=== PATIENT | female | born 1975 | race Caucasian/White ===

== ENCOUNTER 2018-12-28 20:21 | Inpatient (IN) | payer OTHER ==
[~2018-12-28] VITALS: Ht 157.5 cm; Wt 91.6 kg
[~2018-12-28 20:21] MED LIST: HYDROCHLOROTHYAZIDE PO; K10; LEVOTHYROXINE PO; METOPROLOL50 MG PO
[2018-12-28 20:25] VITALS: Ht 157.5 cm; Wt 91.6 kg
--- NOTE | 2018-12-28 20:28 | NUR ---
PT SENT TO LOBBY TO WAIT FOR AVAILABLE BED. NO DISTRESS NOTED AT THIS TIME. PT ALERT AND ORIENTED
[2018-12-28 22:15] LABS: BASOPHIL % 1.3 % (0-2); PLATELET COUNT 214 x10^3mcL (130-400); RED CELL DISTRIBUTION WIDTH 12.9 % (11.5-14.5)
[2018-12-28 22:25] LABS: CALCIUM 8.5 mg/dL (8.5-10.1); CARBON DIOXIDE 21.8 mmol/L (21-32); CHLORIDE SERUM 102 mmol/L (98-107); CREATININE SERUM 0.9 mg/dL (0.6-1.0); GFR1 > 60 mL/min; GLUCOSE SERUM 151 mg/dL (74-106); POTASSIUM SERUM 3.5 mmol/L (3.5-5.1); SODIUM SERUM 135 mmol/L (136-145)
--- NOTE | 2018-12-28 22:27 | NUR ---
PT CAME TO ED CO SOB SINCE FRIDAY. PT DISCRIBES THE PAIN PRESSURE THAT RADIATES TO LEFT SHOULDER. PT STS THIS CAME ON SUDDENLY. PT SAT AT 99% ON ROOM AIR. PT TALKING IN COMPLETE SENTENCES. PT LUNG SOUNDS CLEAR BILATERALLY. COMFORT MEASURES IMPLEMENTED. CALL LIGHT W/IN REACH. NO S/S OF DISTRESS. RESP E/U. WILL CONTINUE TO MONITOR.
[2018-12-28 22:30] LABS: ALKALINE PHOSPHATASE 59 U/L (46-116); ALT/SGPT 105 U/L (14-59); AST/SGOT 42 U/L (15-37); BILIRUBIN TOTAL 0.99 mg/dL (0.20-1.00); LIPASE 60 IU/L (73-393)
[2018-12-28 22:39] LABS: ALBUMIN 3.3 g/dL (3.4-5.0); TOTAL PROTEIN, SERUM 8.3 g/dL (6.4-8.2)
--- NOTE | 2018-12-28 23:36 | NUR ---
PT MEDICATED PER ORDER. PT VERBALIZED UNDERSTANDING OF MEDICATION TEACHING. SEE EMAR FOR DETAILS.
[2018-12-29] MEDS ORDERED: LOP100 PO (00:23)
[2018-12-29] MEDS ORDERED: TIROSINT75 MC1 PO (00:23)
--- NOTE | 2018-12-29 00:37 | NUR ---
REPORT GIVEN TO ENRIQUE CRUM TO ASSUME CARE OF PT.
--- NOTE | 2018-12-29 01:04 | NUR ---
PT TRANSFERRED TO TELE FLOOR ACCOMPANIED BY NURSE AND EMT. NO S/S OF DISTRESS. RESP E/U. RN AT BEDSIDE TO ASSUME CARE. PT AMBULATED W/STEADY GAIT FROM [facility]. IV SITE PATENT, NO S/S OF INFILTRATION. ACCOMPANIED PT.
[2018-12-29 01:16] VITALS: BP 113/75
--- NOTE | 2018-12-29 01:24 | NUR ---
RECEIVED PT FROM ER, PT ADMIT FOR NONSTEMI, PT IS A/O X4, VERBAL RESPONSIVE, ABLE TO TELL WHAT SHE NEEDS. LUNG SOUND CLEAR BILATERAL, NO COUGH, NO SOB, PT IS ON TELE 4, A.FIB, AND PVC, DENY ANY CHEST PAIN AT THIS MOMENT PT HAD INTERNAL DEFIBILLATOR, BOWEL SOUND PRESENT ALL 4 QUADRANTS, NO DISTENTION, NO TENDER. PEDAL PULSE PRESENT BOTH FEET, NO EDEMA, IV AT RIGHT AC, NO LEAKING, NO INFILTRATION. ALL ADLS ASSIST, ALL NEED MET, CALL LIGHT IN REACH, WILL CONTINUE TO MONITOR.
--- NOTE | 2018-12-29 01:33 | NUR ---
REPORT RECEIVED FROM ENRIQUE KANG. PATIENT WAS SEEN RESTING COMFORTABLY IN BED. NO DISTRESS NOTED. BREATHING EVEN AND UNLABORED ON ROOM AIR. NO SOB OR RESP DISTRESS NOTED. DENIES CHEST PAIN/PRESSURE/TIGHTNESS AT THIS TIME. TELE #4. IV TO THE RAC, 20G, SALINE LOCK. PATENT AND INTACT. NO REDNESS OR SWELLING NOTED. DRESSING CDI. C/O DIARRHEA. REPORTS HAVING 6 EPISODES OF DIARRHEA TODAY. DENIES N/V AT THIS TIME, BUT REPORTS SHE THROWS UP 2 TIMES A DAY. EMESIS AND DIARRHEA DO NOT HAVE BLOOD. NO C/O PAIN AT THIS TIME. COMFORT AND SAFETY MEASURES IN PLACE. BED IS LOCKED AND IN THE LOWEST POSITION. SIDE RAILS UP X2. CALL LIGHT IS WITHIN REACH. WILL CONTINUE TO MONITOR
--- NOTE | 2018-12-29 01:33 | NUR ---
REPORT RECEIVED FROM ENRIQUE KANG. PATIENT WAS SEEN RESTING COMFORTABLY IN BED. NO DISTRESS NOTED. BREATHING EVEN AND UNLABORED ON ROOM AIR. NO SOB OR RESP DISTRESS NOTED. DENIES CHEST PAIN/PRESSURE/TIGHTNESS AT THIS TIME. TELE #4. IV TO THE RAC, 20G, SALINE LOCK. PATENT AND INTACT. NO REDNESS OR SWELLING NOTED. DRESSING CDI. C/O DIARRHEA. REPORTS HAVING 6 EPISODES OF DIARRHEA YESTERDAY. DENIES N/V AT THIS TIME, BUT REPORTS SHE THROWS UP 2 TIMES A DAY. EMESIS AND DIARRHEA DO NOT HAVE BLOOD. NO C/O PAIN AT THIS TIME. COMFORT AND SAFETY MEASURES IN PLACE. BED IS LOCKED AND IN THE LOWEST POSITION. SIDE RAILS UP X2. CALL LIGHT IS WITHIN REACH. WILL CONTINUE TO MONITOR
--- NOTE | 2018-12-29 01:50 | NUR ---
INFORMED PATIENT THAT A URINE SAMPLE IS NEEDED. HAT PLACED ON TOILET. EDUCATED PATIENT TO CALL WHEN SHE VOIDS SO URINE CAN BE COLLECTED. PATIENT VERBALIZED UNDERSTANDING. ICE WATER GIVEN WELL.
--- NOTE | 2018-12-29 03:08 | NUR ---
RESTING IN BED WITH EYES CLOSED ON RIGHT SIDE. NO DISTRESS NOTED. NO S/S OF PAIN NOTED. IV IS SALINE LOCK TO RAC. BREATHING EVEN AND UNLABORED ON ROOM AIR. SAFETY MEASURES IN PLACE. CALL LIGHT IS WITHIN REACH. WILL CONTINUE TO MONITOR.
--- NOTE | 2018-12-29 04:21 | NUR ---
C/O ACID REFLUX AND REQUESTING MEDICATION. PAGE GATED DR MILLER TO NOTIFY HIM. NO NEW ORDERS AT THIS TIME. PATIENT DENIES SOB OR CHEST PAIN/PRESSURE/TIGHTNESS. BREATHING EVEN AND UNLABORED ON ROOM AIR. SAFETY MEASURES IN PLACE. CALL LIGHT IS WITHIN REACH. WILL CONTINUE TO MONITOR
[2018-12-29 05:43] VITALS: BP 100/55
--- NOTE | 2018-12-29 06:23 | NUR ---
PATIENT RESTED IN SHORT INTERVALS SINCE ARRVING ONTO THE UNIT. NO ACUTE CHANGES NOTED. DENIES SOB AND CHEST PAIN. BREATHING EVEN AND UNLABORED ON ROOM AIR. NO C/O PAIN THROUGHOUT THE NIGHT. DENIES N/V. IV SALINE LOCK TO THE RAC. URINE COLLECTED FOR UA/UDS. EDUCATED PATIENT THAT STOOL SAMPLE IS NEEDED WELL AND DIET CHANGED TO FULL LIQUID. DEMONSTRATED UNDERSTANDING. ALL NEEDS AND CONCERNS ADDRESSED. COMFORT AND SAFETY MEASURES IN PLACE. CALL LIGHT IS WITHIN REACH. WILL ENDORSE CARE TO DAY SHIFT RN.
[2018-12-29 06:36] LABS: BASOPHIL % 0.6 % (0-2); PLATELET COUNT 190 x10^3mcL (130-400); RED CELL DISTRIBUTION WIDTH 12.9 % (11.5-14.5)
[2018-12-29 07:06] LABS: CALCIUM 8.3 mg/dL (8.5-10.1); CARBON DIOXIDE 23.1 mmol/L (21-32); CHLORIDE SERUM 101 mmol/L (98-107); CHOLESTEROL 172 mg/dL (<200); CREATININE SERUM 0.8 mg/dL (0.6-1.0); GFR1 > 60 mL/min; GLUCOSE SERUM 82 mg/dL (74-106); MAGNESIUM 1.7 mg/dL (1.8-2.4); POTASSIUM SERUM 3.4 mmol/L (3.5-5.1); SODIUM SERUM 137 mmol/L (136-145); TRIGLYCERIDES 110 mg/dL (<150)
[2018-12-29 07:08] LABS: CHOLESTEROL/HDL RATIO 5.9; HDL CHOLESTEROL 29 mg/dL (40-60)
[2018-12-29 07:22] LABS: UA SPECIFIC GRAVITY >=1.030 (1.005-1.035); microscopic required? YES; urine erythrocyte 3+ (NEGATIVE)
--- NOTE | 2018-12-29 07:30 | NUR ---
RECEIVED PT IN BED A/A/OX4 DENIES SAUCEDO. RESP EVEN AND UNLABORED WITH CLEAR BS BILAT. DENIES ANY SOB/CP/PRESSURE AT THIS TIME. REPORTED IMPROVEMENT WITH CP ONCE SHE ARRIVED ON FLOOR. CURRENTLY AFIB ON TELE WITH +TROP, PENDING CARDIOLOGY CONSULT. ABD SOFT, NONTENDER WITH ACTIVE BS X4. HAD EPISODES OF DIARRHEA PRIOR TO ARRIVAL, REMINDED TO PROVIDE SPECIMEN ON NEXT BM SINCE PT HAS ORDER FOR STOOL STUDY. VOIDING FREELY, DENIES ANY DISCOMFORT WITH URINATION. AMBULATORY. CALL LIGHT IN REACH NEEDS ATTENDED TO.
[2018-12-29 07:32] LABS: AMPHETAMINE QUAL UR NONE DETECTED (See below)
[2018-12-29 08:44] VITALS: BP 96/62
[2018-12-29 12:35] VITALS: BP 92/62
--- NOTE | 2018-12-29 13:37 | NUR ---
HERE AND MADE AWARE OF THE TROP 1.031. PAGE GATE TO THE RESULTS OF THE TROP 1.031.
--- NOTE | 2018-12-29 14:11 | NUR ---
Discount pharmacy card and list to low cost medical clinics given to patient by Gayathri Sanchez.
--- NOTE | 2018-12-29 16:10 | NUR ---
DR. DAVIS MADE AWARE OF LASIX DOSE HELD D/T LOW B/P 86/60. PER OK TO HOLD WILL ADD ANOTHER DOSE FOR TONIGHT TO BE GIVEN IF SBP>90. CONT TO MONITOR.
--- NOTE | 2018-12-29 18:20 | NUR ---
PT RESTING AT THIS TIME. DENIES ANY DISCOMFORT WITH ONGOING 1L BOLUS ORDERED. LATEST B/P PRIOR TO STARTING BOLUS . PT HAD NO EPISODES OF CP THROUGH OUT THE SHIFT. HAD CARDIOLOGY CONSULTS WITH CHANGES TO MEDICATIONS. NO EPISODES OF DIARRHEA, WITH PENDING STOOL STUDY. PT REMINDED TO PLS COLLECT SPECIMEN. CALL LIGHT IN REACH NEEDS ATTENDED TO.
[2018-12-29 18:21] VITALS: BP 93/66
--- NOTE | 2018-12-29 20:00 | NUR ---
PATIENT RECEIVED AWAKE, ALERT, ORIENTED X4 IN BED. RESPIRATION EVEN AND UNLABORED, ON ROOM AIR. ONGOING 0.9% NS AT 150 CC/HR INFUSING WELL AT THE RIGHT ANTECUBITAL AREA. DENIES PAIN AT THIS TIME. LBM 12/28/2018. VOIDING FREELY WITHOUT DIFFICULTY. AMBULATORY. SKIN DRY AND INTACT. ON TELE #4. WILL CONTINUE TO MONITOR.
[2018-12-29 20:25] VITALS: BP 121/67
[2018-12-30 05:33] VITALS: BP 103/69
--- NOTE | 2018-12-30 06:15 | NUR ---
PATIENT RESTING IN BED. RESPIRATION EVEN AND UNLABORED, ON ROOM AIR. DENIES PAIN NOR DISCOMFORT. IV SITE NO SIGN OF INFILTRATION. ASSISTED WITH NEEDS. SAFETY OBSERVED. PLACED BED IN THE LOWEST POSITION. PLACED CALL LIGHT WITHIN REACH AT ALL TIMES.
[2018-12-30 06:56] LABS: BASOPHIL % 0.6 % (0-2); PLATELET COUNT 184 x10^3mcL (130-400)
[2018-12-30 07:14] LABS: CALCIUM 8.5 mg/dL (8.5-10.1); CARBON DIOXIDE 25.8 mmol/L (21-32); CHLORIDE SERUM 106 mmol/L (98-107); CREATININE SERUM 0.8 mg/dL (0.6-1.0); GFR1 > 60 mL/min; GLUCOSE SERUM 89 mg/dL (74-106); MAGNESIUM 1.9 mg/dL (1.8-2.4); PHOSPHOROUS 3.5 mg/dL (2.5-4.9); POTASSIUM SERUM 3.7 mmol/L (3.5-5.1); SODIUM SERUM 142 mmol/L (136-145)
--- NOTE | 2018-12-30 07:30 | NUR ---
RECEIVED PT IN NO ACUTE DISTRESS. ASLEEP BUT AROUSABLE. RESP EVEN AND UNLABORED ON RA. NO PAIN NOTED. A-FIB ON TELE #4, HR IN 110'S. IV TO RAC, NO REDNESS OR SWELLING TO IV SITE. BED IN LOW POSITION, CALL LIGHT WITHIN REACH. WILL CONTINUE TO MONITOR.
[2018-12-30 08:07] VITALS: BP 106/61
--- NOTE | 2018-12-30 09:08 | NUR ---
PT HAD SOFT BM, STOOL CX SAMPLE SENT TO LAB ORDERED. NO C/O ABD DISCOMFORT, TOLERATED FULL LIQUID DIET THIS AM. WILL CONTINUE TO MONITOR.
--- NOTE | 2018-12-30 11:48 | NUR ---
PT SITTING UP ON A CHAIR. NO ACUTE DISTRESS. RESP EVEN AND UNLABORED ON RA. REPORTS SOB WHEN AMBULATING. DENIES CP OR PRESSURE. IV TO RAC, NO REDNESS OR SWELLING. VISITORS AT BEDSIDE. CALL LIGHT WITHIN REACH. WILL CONTINUE TO MONITOR.
[2018-12-30 12:11] VITALS: BP 102/71
[2018-12-30 16:19] VITALS: BP 115/82
--- NOTE | 2018-12-30 17:00 | NUR ---
PT SITTING UP IN BED. NO ACUTE DISTRESS. DENIES CP OR PRESSURE. GIVEN NEW GOWN, BATH WIPES AND UNDERWEAR REQUESTED. IV TO RAC WITH NO REDNESS OR SWELLING. CALL LIGHT WITHIN REACH. WILL CONTINUE TO MONITOR.
--- NOTE | 2018-12-30 17:56 | NUR ---
PT POSITIVE FOR MRSA NARES. PLACED ON CONTACT ISOLATION. DR. DAVIS NOTIFIED. WILL CONTINUE TO MONITOR.
--- NOTE | 2018-12-30 18:12 | NUR ---
PT IN NO ACUTE DISTRESS. SITTING UP ON THE SIDE OF THE BED. AAOX4. DENIES CP OR PRESSURE. IV TO RAC, NO REDNESS OR SWELLING. BED IN LOW POSITION, CALL LIGHT WITHIN REACH. WILL ENDORSE TO ONCOMING SHIFT.
--- NOTE | 2018-12-30 19:30 | NUR ---
RECEIVED PT FROM DAY SHIFT RN. PT AAOX4 DENIES SAUCEDO/DIZZINESS. BREATHING EVEN AND UNLABORED ON RA WITH NO SOB NOTED. MED SURG PT DENIES CHEST PAIN OR PRESSURE. PT HAS DEFIBRILLATOR. PT AMBULATORY WITH BRP. ABD DISTENDED, ACTIVE BOWEL SOUNDS. DENIES ABD PAIN/N/V. IV RAC PATENT, SL. CONTACT ISOLATION. PT DENIES ANY PAIN. CALL BUTTON WITHIN REACH. SAFETY PRECAUTIONS IN PLACE. FAMILY AT BEDSIDE. WILL CONTINUE TO MONITOR.
--- NOTE | 2018-12-30 20:30 | NUR ---
DR MILLER MADE AWARE MRSA POSITIVE RESULTS. NO NEW ORDERS AT THIS TIME.
[2018-12-30 20:49] VITALS: BP 105/75
--- NOTE | 2018-12-31 01:01 | NUR ---
PT RESTING. BREATIHNG EVEN AND UNLABORED WITH NO SOB NOTED. SAFETY PRECAUTIONS IN PLACE. WILL CONTINUE TO MONITOR.
--- NOTE | 2018-12-31 03:33 | NUR ---
ROUNDS MADE. PT RESTING. BREATHING EVEN AND UNLABORED WITH NO SIGNS OF DISTRESS. SAFETY PRECAUTIONS IN PLACE. WILL CONTINUE TO MONITOR.
--- NOTE | 2018-12-31 05:02 | NUR ---
PT SLEPT MOST OF THE NIGHT WITH NO SIGNS OF DISTRESS. BREATHING EVEN AND UNLABORED ON RA WITH NO SOB NOTED. PT AMBULATES WITH BRP. IV PATENT, SL. PT DENIES ANY PAIN. MEDICATED PER EMAR. PT IN NO SIGNS OF ACUTE DISTRESS NOTED. CALL BUTTON WITHIN REACH. CONTACT PRECAUTIONS IN PLACE. WILL CONTINUE TO MONITOR AND ENDORSE CARE TO DAY SHIFT RN.
[2018-12-31 05:58] VITALS: BP 105/75
[2018-12-31 06:45] LABS: BASOPHIL % 0.6 % (0-2); PLATELET COUNT 174 x10^3mcL (130-400); RED CELL DISTRIBUTION WIDTH 13.2 % (11.5-14.5)
[2018-12-31 07:04] LABS: CALCIUM 8.5 mg/dL (8.5-10.1); CARBON DIOXIDE 22.5 mmol/L (21-32); CHLORIDE SERUM 108 mmol/L (98-107); CREATININE SERUM 0.6 mg/dL (0.6-1.0); GFR1 > 60 mL/min; GLUCOSE SERUM 100 mg/dL (74-106); PHOSPHOROUS 3.9 mg/dL (2.5-4.9); POTASSIUM SERUM 3.7 mmol/L (3.5-5.1); SODIUM SERUM 141 mmol/L (136-145)
--- NOTE | 2018-12-31 07:16 | NUR ---
PT RESTING IN NO SIGNS OF DISTRESS. ENDORSED CARE TO DAY SHIFT RN, ALL QUESTIONS ADDRESSED.
--- NOTE | 2018-12-31 07:19 | NUR ---
RECEIVED PT IN NO ACUTE DISTRESS. RESTING IN BED. AAOX4. RESP EVEN AND UNLABORED ON RA. NO C/O CP OR PRESSURE. IV TO RAC, NO REDNESS OR SWELLING NOTED. BED IN LOW POSITION, CALL LIGHT WITHIN REACH. WILL CONTINUE TO MONITOR.
[2018-12-31 09:03] VITALS: BP 129/83
[2018-12-31] MEDS ORDERED: ELIQUIS5 MG PO (10:35)
[2018-12-31 11:37] VITALS: BP 129/83
--- NOTE | 2018-12-31 12:02 | NUR ---
PT DISCHARGED TO HOME IN NO ACUTE DISTRESS. AWAKE, ALERT, AND ORIENTED. VSS. AMBULATORY. RX GIVEN. DISCHARGE EDUCATION PROVIDED, PT VERBALIZED UNDERSTANDING. INSTRUCTED PT TO FOLLOW UP WITH PCP AND CHIP TESTER. BELONGINGS WITH PT. IV DC'D WITH CATHETER INTACT. FRANNY CLARKE ACCOMPANIED PT TO LOBBY.
== END 2018-12-31 12:02 | disposition home or self-care (01) | DRG 194 ==
LOC: ED 20:21 → DU 23:41 → MU 12-30 16:23
PROVIDERS: Emergency Medicine; Internal Medicine; ADMIT Internal Medicine
DX: I50.23 Acute on chronic systolic (congestive) heart failure (principal); I21.A1 Myocardial infarction type 2; E44.0 Moderate protein-calorie malnutrition; I48.2 Chronic atrial fibrillation; E06.3 Autoimmune thyroiditis; I42.2 Other hypertrophic cardiomyopathy; K52.9 Noninfective gastroenteritis and colitis, unspecified; Z68.35 Body mass index [BMI] 35.0-35.9, adult; Z87.891 Personal history of nicotine dependence; Z95.810 Presence of automatic (implantable) cardiac defibrillator
CPT/HCPCS: 83880; 87046; 87046-59; G0378; J1650; J1885; J1940; J2405; J3475; J7030; J7050; Q0092

== ENCOUNTER 2019-01-15 18:08 | Inpatient (IN) | payer OTHER ==
[~2019-01-15] VITALS: Ht 157.5 cm; Wt 91.0 kg
[~2019-01-15 18:08] MED LIST changes: +ELIQUIS5 MG PO; +LOP100 PO; +TIROSINT75 MC1 PO
--- NOTE | 2019-01-15 18:35 | NUR ---
AMBULATORY TO BED 14. PT C/O WHEEZING X1 DAY, PRIOD COUGH X2 DAYS. PT ALSO C/O ABD PAIN AND SOB. DENIES CP, "I JUST FEEL FATIGUED".
--- NOTE | 2019-01-15 18:37 | NUR ---
DR. BROOKS AT BEDSIDE.
[2019-01-15 19:01] LABS: BASOPHIL % 1.3 % (0-2); PLATELET COUNT 203 x10^3mcL (130-400); RED CELL DISTRIBUTION WIDTH 13.6 % (11.5-14.5)
--- NOTE | 2019-01-15 19:04 | NUR ---
ALL MEDS WERE ADMINISTERED ORDERED. PT STATES "I FEEL BETTER, MY CHEST FEELS BETTER". A FIB ON MONITOR AT 97-105 AT THIS TIME, DENIES CP. SITTING IN BED, O2 2L VIA NC.
--- NOTE | 2019-01-15 19:05 | NUR ---
REPORT GIVEN TO ENRIQUE MCCARTHY NOC SHIFT.
--- NOTE | 2019-01-15 19:10 | NUR ---
RECIEVED REPORT FROM CHRISTIANO RN. PT SITTING ON GURNEY WITH LEGS CROSSED ON GURNEY IN POSITION OF COMFORT. PT A&0X4, SPEAKING FULL CLEAR SENTENCES. BREATHING EVEN AND UNLABORED. PT DENIES ANY SOB AT THIS TIME. CM AND [address] PT REMAINS AFIB ON MONITOR. DR BROOKS AWARE. WILL CONTINUE TO MONITOR.
[2019-01-15 19:18] LABS: CALCIUM 7.9 mg/dL (8.5-10.1); CHLORIDE SERUM 107 mmol/L (98-107); CREATININE SERUM 0.8 mg/dL (0.6-1.0); GFR1 > 60 mL/min; GLUCOSE SERUM 111 mg/dL (74-106); POTASSIUM SERUM 3.9 mmol/L (3.5-5.1); SODIUM SERUM 142 mmol/L (136-145)
[2019-01-15 19:22] LABS: ALKALINE PHOSPHATASE 52 U/L (46-116); ALT/SGPT 63 U/L (14-59); AST/SGOT 36 U/L (15-37); BILIRUBIN TOTAL 0.8 mg/dL (0.20-1.00); TOTAL PROTEIN, SERUM 8.1 g/dL (6.4-8.2)
--- NOTE | 2019-01-15 19:48 | NUR ---
PT MEDICATED PER MD ORDERS. PT C/O PAIN IN STOMACH WHEN COUGHING. DR BROOKS AWARE. AWAITING ORDERS AT THIS TIME.
[2019-01-15] MEDS ORDERED: GOOD SENSE ASP325 MG PO (20:14)
--- NOTE | 2019-01-15 20:55 | NUR ---
REPORT CALLED TO ALEX NUNEZ
--- NOTE | 2019-01-15 20:58 | NUR ---
PT AMBULATED TO RESTROOM WITH STEADY GAIT. PT DENIES ANY SOB. PT A&0X4, SPEAKING FULL CLEAR SENTENCES. BREATHING EVEN AND UNLABORED. WILL CONTINUE TO MONITOR.
--- NOTE | 2019-01-15 21:00 | NUR ---
PT RECIEVED FROM PEARL NUNEZ. DENIES PAIN AND DISCOMFORT AT THIS TIME. BREATHING E/U ON RA. NO S/S OF ACUTE DISTRESS NOTED AT THIS TIME. ORIENTED TO UNIT AND DEVICES. BED AT LOWEST POSITION. CALL LIGHT WITHIN REACH. WILL CONTINUE TO MONITOR.
--- NOTE | 2019-01-15 21:05 | NUR ---
PT TRANSFERED TO TELE AT THIS TIME VIA LINDA ACCOMPANIED BY [place] RN AND KATHY EMT. PT A&0X4, SPEAKING FULL CLEAR SENTENCES. PT BREATHING EVEN AND UNLABORED. PT CONTINUES TO SHOW AFIB ON MONITOR. FAMILY AT BEDSIDE. PT AND FAMILY VERBALIZED UNDERSTANDING OF PLAN OF CARE.
[2019-01-15 21:24] VITALS: BP 101/71
--- NOTE | 2019-01-15 21:34 | NUR ---
RECEIVED PT FROM ER, PT ADMIT FOR A.FIB, HF, PT IS A/O X4, VERBAL RESPONSIVE, LUNG SOUND CLEAR BILATERAL, NO COUGH, NO SOB, PT IS ON TELE 2, A.FIB, C/O CHEST PAIN 2/10 AT THIS MOMENT, BOWEL SOUND PRESENT ALL 4 QUADRANTS, NO DISTENTION, NO TENDER. PEDAL PULSE PRESENT BOTH FEET, NO EDEMA, IV AT LEFT AC, NO LEAKING, NO INFILTRAITON. ALL ADLS ASSIST, ALL NEED MET, CALL LIGHT IN REACH, WILL CONTINUE TO MONITOR.
[2019-01-16] VITALS (7 sets, daily range): BP systolic 92–113; BP diastolic 61–77
[2019-01-16 00:42] LABS: AMPHETAMINE QUAL UR NONE DETECTED (See below)
--- NOTE | 2019-01-16 00:48 | NUR ---
PT RESTING IN BED AT THIS TIME. DENIES PAIN OR DISCOMFORT AT THIS. NO SIGNS OF ACUTE DISTRESS NOTED AT THIS TIME. BED AT LOWEST POSITION. CALL LIGHT WITHIN REACH. WILL CONTINUE TO MONITOR.
--- NOTE | 2019-01-16 06:05 | NUR ---
PT RESTING IN BED COMFORTABLY AT THIS TIME. DENIES PAIN OR DISCOMFORT AT THIS TIME. BREATHING EVEN AND UNLABORED ON RA. SPO2 95%. NO ACUTE DISTRESS THIS SHIFT. PT RECIEVED BREATHING TREATMENT VIA RT. WILL ENDORSE TO DAY NURSE.
[2019-01-16 07:08] LABS: CALCIUM 7.9 mg/dL (8.5-10.1); CHLORIDE SERUM 105 mmol/L (98-107); CREATININE SERUM 0.8 mg/dL (0.6-1.0); GFR1 > 60 mL/min; GLUCOSE SERUM 148 mg/dL (74-106); MAGNESIUM 1.7 mg/dL (1.8-2.4); POTASSIUM SERUM 3.7 mmol/L (3.5-5.1); SODIUM SERUM 139 mmol/L (136-145)
--- NOTE | 2019-01-16 07:32 | NUR ---
AAO TIMES 4. TELE # 2 A FIB 93 TO 113. LUNGS CTA. NO SOB. O2 SAT ON RA 100%. BS'S ACTIVE TIMES 4. MAHAJAN STRONG. PATIENT HAS AN INTERNAL DEFIBRILLATOR TO LEFT UPPER CHEST, SCAR IS CDI, DEVICE PALPATED UNDER THE SKIN PERIPHERAL PULSES PALPABLE. NO EDEMA.
--- NOTE | 2019-01-16 09:26 | NUR ---
ECHO PENDING. PATIENT HAD ECHO [place] HERE [place] [facility] [place] SEE MEDICAL RECORDS FOR REPORT.
--- NOTE | 2019-01-16 10:07 | NUR ---
HER HEART RATE WAS 150'S AND ATRIAL FIB. CARDIZEM 10 MG IVP WAS GIVEN OVER 2 MINUTES AT 0850. AT 0855 HER HEART RATE WAS FLUCTUATING APPROXIMATLEY BETWEEN 115 TO 130.
--- NOTE | 2019-01-16 11:30 | NUR ---
DR BARNETT, COVERING FOR DR BOTELLO THIS WEEKEND, IS AWARE OF HER TROPONIN OF 0.370 AND ITS TRENDING DOWN FROM PREVIOUS TROPONIN OF 0.469. HE IS AWARE OF HER MAG OF 1.7, SHE WILL GET PO MAG.
--- NOTE | 2019-01-16 12:46 | NUR ---
CORRECTIONS NURSE CALLED PATIENT HAD HR OF 151 AFIB. WENT TO CHECK THE PATIENT AND STATED SHE FEELS HER HR BEATING FAST AND SHE CLAIMED THAT SHE WAS COUGHING NO C/O OF CHEST PAIN OR NO SIGNS OF SOB. B/P-113/77,AK-115,RR-16 AND SAT.AT 94%. HERE AND MADE AWARE AND W/ ORDER AND SHOWS THE [facility].
[2019-01-16 15:00] LABS: T3 TOTAL 0.85 ng/mL
--- NOTE | 2019-01-16 18:15 | NUR ---
AAO TIMES 4. TELE # 2 A FIB 139. DENIES DISCOMFORT. NO SOB. COOPERATIVE. VS'S EXCEPT FOR HR STABLE. IV SITE LAC PATENT, CDI. WATCHING TV AND LOOKING AT HER PHONE.
--- NOTE | 2019-01-16 18:46 | NUR ---
HER HEART RATE IS GOING FROM THE 140'S TO THE 150'S AND ATRIAL FIB. HER CURRENT BP AT THIS TIME IS 92/63, HR 145. I HAVE DILTIAZEM IVP TO GIVE HER, BUT HER BP IS TOO LOW. I DISCUSSED WITH MY CHARGE NURSE ELOY, AND WE DECIDED TO HOLD IT DUE TO HER BP. SHE IS ASYMPTOMATIC.
--- NOTE | 2019-01-16 18:51 | NUR ---
I HAD HER DO THE VALSALVA MANEUVER BLOWING INTO HER THUMB, 3 TIMES, HER HR WAS IN THE 150'S AND IT WENT DOWN TO THE 140'S, THEN WENT BACK UP TO THE 150'S.
--- NOTE | 2019-01-16 19:10 | NUR ---
MONITOR SHOWS SVT HR-150'S AND WENT TO PATIENT ROOM WAS SITTING IN THE CHAIR AND C/O OF CHEST PRESSURE. SHE WENT BACK TO BED AND AM GETTING THE O2 NASAL CANNULA AND GIVE TO [place]INA RN AND MADE AWARE. CALLED TO 'S CELL NO. AND LEAVE A MESSAGE.CALLED TO HIS EXCHANGE AND WAITING NO ANSWER. CALLED TO CHIEF PETROLEUM ENGINEER OF THE GROUP AND GEORGE MARINELLI IS CHIEF PETROLEUM ENGINEER. 1919- CALLED BACK AND INFORMED AND UPDATED THE CONDITION OF THE PATIENT AND SHE WANTS TO LET KNOWS AND SHE ORDERED TO BOLUS 200CC NORMAL SALINE.
--- NOTE | 2019-01-16 19:30 | NUR ---
PT IS A/O X4. ON TELE #2, AFIB HR IN 150-160S. COMPLAINS OF MILD CHEST PAIN 3/10. NON RADIATING, DULL. NO SIGN OF DISTRESS NOTED. CHARGE NURSES ATTEMPTING TO CALL MD FOR ORDERS TO DECREASE THE HR. PULSES ARE PRESENT. NO EDEMA NOTED. LUNGS CLEAR. ON 2L NC, DENIES ANY SOB. EQUAL CHEST RISE AND FALL. DENIES ANY SOB. BOWEL SOUNDS PRESENT. SKIN INTACT. DENIES ANY OTHER PAIN OR DISTRESS. SALINE LOCKED ON LAC. AND FAMILY AT BEDSIDE. BED AT LOWEST SETTING. THERAPUTIC COMMUNICATION PROVIDED. WILL CONTINUE TO MONITOR.
--- NOTE | 2019-01-16 19:45 | NUR ---
BOULS WAS INITIATED.
--- NOTE | 2019-01-16 20:00 | NUR ---
CALLED BACK AND INFORMED OF THE PATIENT'S HEART RATE IN THE 150'S AND SHE RECEIVED THE DIGOXIN THAT WAS ORDERED EARLIER.TOLD THAT DR VAZQUEZ FILM AND VIDEO GRAPHICS DESIGNER FROM THE GROUP ORDERED NS 200CC BOLUS. MADE MAGANA THAT PATIENT'S B/P IN THE 90'S AND HE GAVE ORDERS. REPORT GIVEN TO FERNANDA NUNEZ IN CHARGE OF THE PATIENT.
--- NOTE | 2019-01-16 21:06 | NUR ---
DIG WAS PUSHED PER EMAR. APICAKL PULSE WAS 147 BEFORE PUSHING MEDICATIONS. BEFORE AND AFTER STRIPS PRINTED. CALCIUM CHOLRIDE IS BEING GIVEN. AT THIS TIME.
--- NOTE | 2019-01-16 22:17 | NUR ---
CALCIUM CHOLRIDE IS COMPLETED. IV SITE IS INTACT. PT DENIES ANY PAIN OR DISCOMFORT AT SIGHT. DENIES ANY CHEST PAIN AT THIS TIME. MAG RIDER WAS HUNG AND BEGUN PER EMAR. B/P IS 98/74 HR IN 140S TO HIGH 150S, UNABLE TO GIVE VERAPAMIL PER EMAR D/T LOW B/P AT THIS TIME. WILL RECHECK B/P.
--- NOTE | 2019-01-16 23:04 | NUR ---
PT B/P IS 105/68 WITH HR 140. GAVE ORDERED VERAPAMIL. WILL CONTINUE TO MONTIOR.
--- NOTE | 2019-01-17 03:42 | NUR ---
GAVE DIG PER EMAR. APICAL PULSE WAS CHECKED BEFORE ADMINISTERING MEDICATION. HR WAS 94. TELE STRIP WAS PRINTED BEFORE AND AFTER. WILL CONTINUE TO MONITOR.
[2019-01-17 05:37] VITALS: BP 107/66
--- NOTE | 2019-01-17 06:49 | NUR ---
PT IS RESTING IN BED. DENIES ANY CHEST PAIN OR PRESSURE. DIG WAS GIVEN PER EMAR. APICAL RATE WAS 88 AND STRIP WAS PRINTED BEFORE AND AFTER. IV IS INTACT AND PATENT. SITE WNL. BED IS AT LOWEST SETTING. CALL LIGHT WITHIN REACH. WILL ENDORSE TO AM NURSE.
[2019-01-17 07:33] LABS: CALCIUM 8.2 mg/dL (8.5-10.1); CARBON DIOXIDE 26.8 mmol/L (21-32); CHLORIDE SERUM 106 mmol/L (98-107); CREATININE SERUM 0.8 mg/dL (0.6-1.0); GFR1 > 60 mL/min; GLUCOSE SERUM 89 mg/dL (74-106); MAGNESIUM 1.9 mg/dL (1.8-2.4); POTASSIUM SERUM 3.6 mmol/L (3.5-5.1); SODIUM SERUM 141 mmol/L (136-145)
--- NOTE | 2019-01-17 08:01 | NUR ---
AAO TIMES 4. TELE # 2 A FIB. 70'S. LUNGS CTA. NO SOB. O2 SAT ON 2L NC 98%. BS'S ACTIVE TIMES 4. DENIES DISCOMFORT OR SOB. PERIPHERAL PULSES PALPABLE. NO EDEMA. BRP SELF, ABLE TO REPOSITION SELF EASILY ALSO. IV SITE LAC PATENT, CDI. COOPERATIVE. SHE WAS TAUGHT TO USE HAT ON TOILET TO KEEP TRACK OF I&O'S AND TO KEEP TRACK OF WHAT SHE DRINKS, SHE AGREED. NO C/O DISCOMFORT. DR HERRERA CAME IN THIS AM TO CHECK ON HER, HER HR IS STAYING IN THE 70'S AT THIS TIME.
[2019-01-17 08:04] VITALS: BP 98/67
--- NOTE | 2019-01-17 09:35 | NUR ---
SHE WAS COUGHING AND WHEEZING. SHE WAS GIVEN PHENERGAN WITH CODEINE PER DR BARNETT'S ORDER AT 0935. AT 1035 SHE WAS NO LONGER COUGHING.
--- NOTE | 2019-01-17 09:35 | NUR ---
SHE WAS C/O ANXIETY. DR BARNETT WAS AWARE, HE ORDERED ATIVAN 1 MG PO. IT WAS GIVEN AT 0935. AT 1035 SHE WAS SLEEPING, SHE LATER SAID SHE FELT BETTER.
--- NOTE | 2019-01-17 11:23 | NUR ---
SHE HAD A RUN OF V TACH, DR BARNETT PRESENT AND WAS SHOWN THE STRIP OF V TACH. I TOLD HIM ABOUT HER HEART RATE TODAY AND LAST NIGHT, AND ALSO ABOUT HER WHEEZING AND COUGHING. HE ORDERED PREDNISONE AND COUGH SYRUP.
--- NOTE | 2019-01-17 11:36 | NUR ---
DR BARNETT AWARE THAT I HELD THE COREG AT 0900 DOSE SO THAT THE CORDERONE COULD BE GIVEN THIS AM WHEN HER BP WAS 98/67, I WAS WORRIED HER BP WOULD DROP. ANABEL BP IS NOW 114/63, HR 93, MAP OF 83. HE SAID TO GIVE THE COREG 6.25 MG PO NOW.
--- NOTE | 2019-01-17 11:40 | NUR ---
SHE WAS COUGHING AT 1140, SHE WAS COUGHING OFF AND ON ALL MORNING. AT 1140 SHE WAS GIVEN PHENERGAN WITH CODEINE PER DR BARNETT'S ORDER. AT 1240 SHE SAID HER COUGHING WAS RELIEVED.
[2019-01-17 11:54] VITALS: BP 114/63
[2019-01-17 16:49] VITALS: BP 100/62
--- NOTE | 2019-01-17 18:36 | NUR ---
AAO TIMES 4. TELE # 2 A FIB 130'S. DENIES DISCOMFORT. NO SOB. O2 2L NC. HER IS PRESENT, SUPPORTIVE AND CARING. NO C/O PAIN. COOPERATIVE.
--- NOTE | 2019-01-17 19:58 | NUR ---
SHIFT REASSESSMENT DONE.PATIENT ALERT AND ORIENTED.AT 2 LITERS N/C WHEN RECEIVED,BREATHING EASY.MOVING ALL EXT WELL.PATIENT IS CONTACT ISOLATION,HX MRSA NARES.PRECAUTION MAINTAINED.LAC HEPLOCK INTACT.TELE 2 AFIB.NO CHEST PAIN.SKIN IS INTACT.ELEVATED TROP,ON ELIQUIS.FAMILY VISITING,SUPPORTIVE OF CARE.CALL LIGHT IN REACH.
[2019-01-17 20:46] VITALS: BP 92/71
--- NOTE | 2019-01-17 21:17 | NUR ---
ALL PM MEDS GIVEN,SWALLOWS WELL.PATIENT GIVEN ELIQUIS,FAMILY VERY SUPPORTIVE OF CARE.
--- NOTE | 2019-01-18 01:29 | NUR ---
CHECKE AT INTERVALS FOR NEEDS AND SAFETY.NO COMPLAINT.
--- NOTE | 2019-01-18 02:00 | NUR ---
OFF CONTACT ISOLATION NOW,MRSA SCREENING CAME BACK NEGATIVE.
--- NOTE | 2019-01-18 05:01 | NUR ---
PATIENT AMBULATORY TO RESTROOM,VOIDING QS.NO DISTRESS.
[2019-01-18 05:08] VITALS: Ht 157.5 cm; Wt 91.0 kg
--- NOTE | 2019-01-18 05:28 | NUR ---
I AND O MEASURED.SLEEPING WELL DURING THE NIGHT.
[2019-01-18 05:31] VITALS: BP 113/65
--- NOTE | 2019-01-18 05:56 | NUR ---
WILL ENDORSE TO NEXT SHIFT.
[2019-01-18 06:27] LABS: CARBON DIOXIDE 29.1 mmol/L (21-32); CHLORIDE SERUM 108 mmol/L (98-107); CREATININE SERUM 0.7 mg/dL (0.6-1.0); GFR1 > 60 mL/min; GLUCOSE SERUM 86 mg/dL (74-106); MAGNESIUM 1.9 mg/dL (1.8-2.4); SODIUM SERUM 143 mmol/L (136-145)
[2019-01-18 06:31] LABS: BILIRUBIN DIRECT 0.23 mg/dL (0.0-0.2); BILIRUBIN TOTAL 0.6 mg/dL (0.20-1.00); TOTAL PROTEIN, SERUM 7.1 g/dL (6.4-8.2)
[2019-01-18 06:32] LABS: ALBUMIN 2.7 g/dL (3.4-5.0)
[2019-01-18 06:42] LABS: BASOPHIL % 0.4 % (0-2); PLATELET COUNT 207 x10^3mcL (130-400); RED CELL DISTRIBUTION WIDTH 13.6 % (11.5-14.5)
--- NOTE | 2019-01-18 07:37 | NUR ---
RECEIVED RESTING IN BED BUT AROUSABLE. NO ACUTE RESP. DISTRESS. NO C/O PAIN OR DISCOMFORT AT THIS TIME. VS WNL. CALL LIGHT WITHIN REACH. WILL CONTINUE WITH PLAN OF CARE.
[2019-01-18 08:58] VITALS: BP 111/70
--- NOTE | 2019-01-18 12:42 | NUR ---
RESTING IN BED, NO DISTRESS NOTED. NO CHANGES IN VS. CALL LIGHT WITHIN REACH. FAMILY AT BEDSIDE.
[2019-01-18 13:38] VITALS: BP 109/68
--- NOTE | 2019-01-18 17:08 | NUR ---
PT WILL BE DC'D HOME THIS PM. DC INSTRUCTIONS REVIEWED WITH PT AND FAMILY. RX GIVEN. HL REMOVED AND SITE/CATH INTACT. NO REDNESS OR SWELLING NOTED. PT DENIES PAIN OR DISCOMFORT AT THIS TIME. VS STABLE.
== END 2019-01-18 17:11 | disposition home or self-care (01) | DRG 201 ==
LOC: ED 18:08 → DU 20:36
PROVIDERS: Emergency Medicine; Internal Medicine Pulmonary Disease; ADMIT Internal Medicine Pulmonary Disease
DX: I48.91 Unspecified atrial fibrillation (principal); O90.3 Peripartum cardiomyopathy; I11.0 Hypertensive heart disease with heart failure; I50.9 Heart failure, unspecified; E83.51 Hypocalcemia; E03.9 Hypothyroidism, unspecified; I25.2 Old myocardial infarction; Z95.810 Presence of automatic (implantable) cardiac defibrillator; Z79.899 Other long term (current) drug therapy; Z87.891 Personal history of nicotine dependence
CPT/HCPCS: 83880; C9113; G0378; J1160; J1885; J1940; J2405; J2930; J3475; J3490; J7030; J7512; J7620; Q0092

== ENCOUNTER 2019-02-01 01:39 | Observation (INO) | payer OTHER ==
[~2019-02-01] VITALS: Ht 157.5 cm; Wt 91.2 kg
[~2019-02-01 01:39] MED LIST changes: +GOOD SENSE ASP325 MG PO
[2019-02-01 01:42] VITALS: Ht 157.5 cm; Wt 91.2 kg
--- NOTE | 2019-02-01 01:45 | NUR ---
EKG IN PROGRESS IN TRIAGE.
--- NOTE | 2019-02-01 01:54 | NUR ---
PT C/O CHEST PAIN AND PALPITATIONS X1 DAY. PT REPORTS [place] THE [place] Y[place]ER[place] AM WHEN SHE STARTED TO EXPERIENCE 7/10 SHARP NON-RADIATING CHEST PAIN ON THE LEFT SIDE. PT REPORTS TRYING TO SLEEP THROUGHOUT THE DAY AND NIGHT, AND AWAKING TO PALPITATIONS. PT REPORTS CARDIAC HX. PT REPORTS NO OTHER COMPLAINTS. PT DENIES SAUCEDO, BLURRED VISION, N/V/D. PT PLACED ON C[employer] OFFICER AND PULSE OX. NAD NOTED AT THIS TIME. WILL CONTINUE TO MONITOR.
[2019-02-01 02:44] LABS: CALCIUM 8.1 mg/dL (8.5-10.1); CARBON DIOXIDE 27.2 mmol/L (21-32); CHLORIDE SERUM 106 mmol/L (98-107); CREATININE SERUM 0.7 mg/dL (0.6-1.0); GFR1 > 60 mL/min; GLUCOSE SERUM 102 mg/dL (74-106); POTASSIUM SERUM 3.5 mmol/L (3.5-5.1); SODIUM SERUM 142 mmol/L (136-145)
[2019-02-01 02:50] LABS: ALKALINE PHOSPHATASE 53 U/L (46-116); ALT/SGPT 54 U/L (14-59); AST/SGOT 35 U/L (15-37); BILIRUBIN TOTAL 0.6 mg/dL (0.20-1.00); TOTAL PROTEIN, SERUM 7.5 g/dL (6.4-8.2)
[2019-02-01 02:55] LABS: ALBUMIN 3.1 g/dL (3.4-5.0)
[2019-02-01 03:03] LABS: BASOPHIL % 0.4 % (0-2); PLATELET COUNT 212 x10^3mcL (130-400); RED CELL DISTRIBUTION WIDTH 13.7 % (11.5-14.5)
--- NOTE | 2019-02-01 03:40 | NUR ---
PT C/O 11/25 HEADACHE. MADE MD AWARE
--- NOTE | 2019-02-01 03:55 | NUR ---
MEDICATION ADMINISTERED PER MD ORDER FOR HEADACHE
--- NOTE | 2019-02-01 05:23 | NUR ---
PT AWAKE AND ALERT, LAYING IN POSITION OF COMFORT. PT REPORTS RELIEF OF SAUCEDO AFTER DINKEY DRIVER, 0. VSS, RESPS E/U, NAD NOTED AT THIS TIME. AWAITING CALL BACK FROM ADMITTING MD. WILL CONTINUE TO MONITOR.
[2019-02-01] MEDS ORDERED: DIGOX0.125 MG PO (05:25)
[2019-02-01] MEDS ORDERED: FUROSEMIDE40 MG PO (05:25)
[2019-02-01] MEDS ORDERED: POTASSIUM CHLO20 ME1 PO (05:25)
[2019-02-01] MEDS ORDERED: AMIODARONE200 MG PO (05:26)
[2019-02-01] MEDS ORDERED: CARVEDILOL6.25 M1 PO (05:26)
--- NOTE | 2019-02-01 05:51 | NUR ---
REPORT GIVEN TO SHANNEN NUNEZ
--- NOTE | 2019-02-01 06:32 | NUR ---
REC'D PT FROM ED VIA LINDA ACCOMPANIED BY NURSE. PT ADM WITH CC OF CP AND SOB WHILE WALKING. CURRENTLY REPORTS 6/10 L SIDED CHEST "SORENESS" AND PRESSURE. PAIN EXACERBATED WITH DEEP BREATHS. ALSO C/O SAUCEDO 5-6/10, PRESSURE LIKE LOCATED TO BACK OF NECK. WILL GIVE MORPHINE ONCE VERIFIED BY PHARMACY. TELE 8, AFIB WITH PVCS. HR 76. REPORTED DIZZINESS AND L SIDED FACIAL NUMBING EARLIER BUT DENIES AT THIS TIME. TRACE EDEMA BLE. ABD SOFT/ROUND/OBESE. DENIES ABD PAIN, TENDERNESS, OR N/V. VOIDING FREELY. AMBULATORY. SKIN INTACT. IV TO RAC FLUSHED AND PATENT, SITE WNL. ORIENTED TO DEVICES AND SURROUNDINGS. CALL LIGHT WITHIN REACH, BED AT LOWEST POSITION. WILL ENDORSE TO DAY NURSE.
[2019-02-01 06:35] VITALS: BP 119/78
[2019-02-01 07:55] VITALS: BP 105/70
--- NOTE | 2019-02-01 08:20 | NUR ---
RECEIVED CRITICAL LAB AT 08:13 TROP 0.676, TRENDING DOWN. AFIB. HR 87. DENIES CHEST PAIN AT THIS TIME. DENIES NUMBNESS/TINGLING. NO SOB ON ROOM AIR. VENEER STAPLER ON CONSULT. CALLED DR. ANDERSON OFFICE, HAVE NOT RECEIVED RETURN CALL AT THIS TIME. PT SCHEDULED TO RECEIVE HEPARIN WITH AM MEDS. NO S/S OF ACUTE DISTRESS. WILL CONTINUE TO MONITOR CLOSELY.
--- NOTE | 2019-02-01 10:00 | NUR ---
PT AMBULATORY TO RESTROOM, GAIT STEADY. AA/OX4. PT BACK IN BED, LAYING. NO S/S OF ACUTE DISTRESS. NO CHEST PAIN. NO SOB ON ROOM AIR. NO N/V/D. PT CALM/COOPERATIVE. BED IN LOW POSITION. CALL LIGHT WITHIN REACH. WILL CONTINUE TO MONITOR.
--- NOTE | 2019-02-01 11:12 | NUR ---
PT LAYING IN BED RESTING. NO S/S OF ACUTE DISTRESS. NO SOB ON ROOM AIR. NO CHEST PAIN. CALM/COOPERATIVE. BED IN LOW POSITION. CALL LIGHT WITHIN REACH. WILL CONTINUE TO MONITOR.
[2019-02-01 11:59] VITALS: BP 91/60
--- NOTE | 2019-02-01 15:07 | NUR ---
TROPONIN TRENDING DOWN, CRITICAL LAB 0.660, DR. HERRERA SAW PATIENT TODAY. RECEIVED NEW ORDERS, PT TO TAKEN ELIQUIS BID. NO COMPLAINT OF CHEST PAIN. NO S/S OF ACUTE DISTRESS. NO SOB ON ROOM AIR. WILL CONTINUE TO MONITOR CLOSELY.
[2019-02-01 16:17] VITALS: BP 149/77
--- NOTE | 2019-02-01 18:14 | NUR ---
PT RESTING IN BED. AA/OX4. REPORTS INTERMITTENT MILD CHEST PAIN TO LEFT CHEST, NON-RADIATING, SHARP, ACUTE, RATES 1/10 DURING EPISODE, DENIES AT THIS TIME. DECLINED TO PAIN MEDICATION. DENIES NUMBNESS/TINGLING. NO SAUCEDO. NO DIZZINESS. NO SOB ON ROOM AIR. IV WNL TO RAC, IV SALINE LOCKED, SITE WNL. PT CALM/COOPERATIVE. BED IN LOW POSITION. CALL LIGHT WITHIN REACH. WILL ENDORSE TO ONCOMING SHIFT.
--- NOTE | 2019-02-01 20:00 | NUR ---
RECEIVED PT IN BED, A/O X4. DENIES HEADACHE/DIZZINESS. RESP. EVEN AND UNLABORED. ON ROOM AIR, NO ACUTE DISTRESS NOTED. DENIES CHEST PAIN OR ANY DISCOMFORT AT THIS TIME. AFEBRILE AND VITAL SIGNS STABLE. HL TO RAC, INTACT AND PATENT. AMBULATORY. VOIDING FREELY. FOR PROCEDURE IN AM, PT AWARE. ASSISTED WITH HS CARE.CALL LIGHT WITHIN REACH. WILL CONTINUE TO MONITOR.
[2019-02-01 20:36] VITALS: BP 143/74
--- NOTE | 2019-02-01 23:35 | NUR ---
RESTING QUIETLY, WATCHING T.V, DENIES CP OR ANY DISCOMFORT AT THIS TIME. CALL LIGHT WITHIN REACH. WILL CONTINUE TO MONITOR.
--- NOTE | 2019-02-02 01:13 | NUR ---
RESTING QUIETLY IN BED, WITH EYES CLOSED.APPEARS ASLEEP, EASILY AROUSABLE. RESP. EVEN AND UNLABORED. NO ACUTE DISTRESS NOTED. CALL LIGHT WITHIN REACH. WILL CONTINUE TO MONITOR.
[2019-02-02 05:34] VITALS: BP 109/77
--- NOTE | 2019-02-02 06:14 | NUR ---
SLEPT WELL . NO COMPLAINTS NOTED AT THIS TIME. AFEBRILE AND VITAL SIGNS STABLE. RESP. EVEN AND UNLABORED. ON ROOM AIR, NO ACUTE DISTRESS NOTED. AFIB ON THE MONITOR, DENIES CP OR ANY DISCOMFORT AT THIS TIME. VOIDING FREELY. KEPT COMFORTABLE. WILL CONTINUE TO MONITOR.
--- NOTE | 2019-02-02 07:15 | NUR ---
RECEIVED PT FROM DEBRA RN. PT AA/AMARIS LAYING IN BED. NO S/S OF ACUTE DISTRESS. NO SOB ON ROOM AIR. NO CHEST AT THIS TIME. REPORTS INTERMITTENT ACUTE SHORT IN DURATION CP, DESCRIBES DISCOMFORT/PALPITATION. NONRADIATING. NO NUMBNESS/TINGLING. DENIES AT THIS TIME. NO SOB ON ROOM AIR. CALM/COOPERATIVE. AFIB ON TELE 8, HR 85. IV WNL TO RAC, NO REDNESS, NO SWELLING, NO INFILTRATION. PATENT AND FLUSHES WELL. SALINE LOCKED. INSTRUCTED TO USE CALL LIGHT TO CALL FOR ASSISTANCE PRN. VERBALIZED UNDERSTANDING. NPO FOR STRESS TEST. BED IN LOW POSITION. CALL LIGHT WITHIN REACH. WILL CONTINUE TO MONITOR.
[2019-02-02 07:27] LABS: BASOPHIL % 0.6 % (0-2); PLATELET COUNT 203 x10^3mcL (130-400); RED CELL DISTRIBUTION WIDTH 14.2 % (11.5-14.5)
[2019-02-02 07:34] LABS: CALCIUM 8.3 mg/dL (8.5-10.1); CARBON DIOXIDE 26.7 mmol/L (21-32); CHLORIDE SERUM 102 mmol/L (98-107); CREATININE SERUM 0.7 mg/dL (0.6-1.0); GFR1 > 60 mL/min; GLUCOSE SERUM 90 mg/dL (74-106); POTASSIUM SERUM 3.1 mmol/L (3.5-5.1); SODIUM SERUM 140 mmol/L (136-145)
--- NOTE | 2019-02-02 08:17 | NUR ---
TROP 0.658, PT ON ELIQUIS, TROPONIN TRENDING DOWN. WILL NOTIFY PHYSICIAN, PT SCHEDULED FOR NM STRESSTEST TODAY WITH DR. HERRERA. PT DENIES CHEST PAIN AT THIS TIME. NO S/S OF ACUTE DISTRESS. WILL MONITOR.
[2019-02-02 08:47] VITALS: BP 123/85
--- NOTE | 2019-02-02 11:15 | NUR ---
PT SITTING AT SIDE OF BED PLAYING GAMES ON PHONE. AA/OX4. DENIES CHEST PAIN. NO SOB ON ROOM AIR. NO N/V/D. IV WNL TO RAC, SALINE LOCKED. BED IN LOW POSITION. CALL LIGHT WITHIN REACH. WILL CONTINUE TO MONITOR.
--- NOTE | 2019-02-02 11:41 | NUR ---
PT TAKEN FOR LEXISCAN BY WHEELCHAIR. AA/OX4. NO CHEST PAIN. NO S/S OF ACUTE DISTRESS. IV WNL TO RAC, SALINE LOCKED. PT CALM/COOPERATIVE. NO N/V.
[2019-02-02 13:40] VITALS: BP 112/73
--- NOTE | 2019-02-02 13:50 | NUR ---
PT BACK FROM PROCEDURE. AA/OX4. DENIES CHEST PAIN. NO SOB ON ROOM AIR. VS STABLE. COMPLAINT OF MILD BACKACHE/BILATERAL UPPER SHOULDER PAIN, GIVEN PO PAIN MED. SEE MAR. IV WNL TO RAC, SALINE LOCKED. PT HAD BM X1, REPORTS NORMAL/BROWN. VOIDED FREELY X1. NO DIFFICULTY URINATING. BED IN LOW POSITION. CALL LIGHT WITHIN REACH. WILL CONTINUE TO MONITOR.
[2019-02-02 16:38] VITALS: BP 106/69
[2019-02-02 17:32] VITALS: BP 113/75
--- NOTE | 2019-02-02 18:24 | NUR ---
PT BEING DISCHARGED TO HOME. AWAKE, ALERT, ORIENTED X4. NO S/S OF ACUTE DISTRESS. DENIES CHEST PAIN. NO SOB ON ROOM AIR. AFIB ON TELE, TELE REMOVED. CALM/COOPERATIVE. NO N/V. NO SAUCEDO. NO DIZZINESS. IV REMOVED FROM RAC, CATHETER IN TACT. PRESSURE APPLIED. SITE WNL. DISCHARGE EDUCATION PROVIDED TO PATIENT. INSTRUCTED TO FOLLOW UP WITH PCP AT [facility] IN 1 W[address] AND FOLLOW UP WITH DR. HERRERA IN 2 WEEKS. PT VERBALIZED UNDERSTANDING. INSTRUCTED PT TO LEASING SPECIALIST PRESCRIPTION FROM PHARMACY, PT VERBALIZED UNDERSTANDING. BELONGINGS WITH PATIENT. ESCORTED TO [facility] BY TRICIA BAUTISTA, AMBULATORY WITH FULL ROM. GAIT STEADY.
== END 2019-02-02 18:24 | disposition home or self-care (01) | DRG 194 ==
LOC: ED 01:39 → DU 05:38
PROVIDERS: Emergency Medicine; ADMIT Internal Medicine
DX: I11.0 Hypertensive heart disease with heart failure (principal); I42.9 Cardiomyopathy, unspecified; Z79.01 Long term (current) use of anticoagulants; I25.10 Atherosclerotic heart disease of native coronary artery without angina pectoris; I50.23 Acute on chronic systolic (congestive) heart failure; I48.91 Unspecified atrial fibrillation; E11.9 Type 2 diabetes mellitus without complications; E03.9 Hypothyroidism, unspecified; F17.211 Nicotine dependence, cigarettes, in remission; I25.2 Old myocardial infarction; Z95.810 Presence of automatic (implantable) cardiac defibrillator
CPT/HCPCS: 83880; 90732; A9500; G0378; J1644; J1940; J2270; J2785; Q0092

== ENCOUNTER 2019-05-12 00:24 | Inpatient (IN) | payer OTHER ==
[~2019-05-12] VITALS: Ht 160 cm; Wt 89.1 kg
[~2019-05-12 00:24] MED LIST changes: +AMIODARONE200 MG PO; +CARVEDILOL6.25 M1 PO; +DIGOX0.125 MG PO; +FUROSEMIDE40 MG PO; +POTASSIUM CHLO20 ME1 PO
[2019-05-12 01:20] LABS: BASOPHIL % 0.9 % (0-2); PLATELET COUNT 198 x10^3mcL (130-400); RED CELL DISTRIBUTION WIDTH 17.4 % (11.5-14.5)
[2019-05-12 01:22] LABS: CHLORIDE SERUM 101 mmol/L (98-107); POTASSIUM SERUM 3.9 mmol/L (3.5-5.1); SODIUM SERUM 138 mmol/L (136-145)
[2019-05-12 01:50] LABS: ALBUMIN 3.4 g/dL (3.4-5.0); ALKALINE PHOSPHATASE 68 U/L (46-116); ALT/SGPT 40 U/L (14-59); AST/SGOT 28 U/L (15-37); BILIRUBIN TOTAL 1.26 mg/dL (0.20-1.00); CALCIUM 8.9 mg/dL (8.5-10.1); CARBON DIOXIDE 26.6 mmol/L (21-32); CREATININE SERUM 0.8 mg/dL (0.6-1.0); GFR1 > 60 mL/min; GLUCOSE SERUM 85 mg/dL (74-106)
[2019-05-12 02:00] LABS: TOTAL PROTEIN, SERUM 8.3 g/dL (6.4-8.2)
[2019-05-12] MEDS ORDERED: CARVEDILOL12.5 M1 PO (02:29)
[2019-05-12 03:31] VITALS: BP 148/93
[2019-05-12 06:06] VITALS: BP 129/75
[2019-05-12 06:50] LABS: CALCIUM 8.9 mg/dL (8.5-10.1); CHLORIDE SERUM 100 mmol/L (98-107); CREATININE SERUM 0.7 mg/dL (0.6-1.0); GFR1 > 60 mL/min; GLUCOSE SERUM 88 mg/dL (74-106); MAGNESIUM 1.7 mg/dL (1.8-2.4); POTASSIUM SERUM 3.6 mmol/L (3.5-5.1); SODIUM SERUM 137 mmol/L (136-145)
[2019-05-12 06:53] LABS: FREE T4 1.05 ng/dL (0.76-1.46); FREE THYROXINE INDEX 3.1 ug/dL (1.4-4.5); T4(THYROXINE) 8.7 ug/dL (4.7-13.3)
[2019-05-12 07:37] LABS: BASOPHIL % 0.5 % (0-2); PLATELET COUNT 174 x10^3mcL (130-400)
[2019-05-12 08:39] LABS: RED CELL DISTRIBUTION WIDTH 17.9 % (11.5-14.5)
[2019-05-12 08:51] VITALS: BP 133/87
[2019-05-12 10:17] LABS: T3 TOTAL 1.08 ng/mL
[2019-05-12 12:26] VITALS: BP 104/74
[2019-05-12 15:33] VITALS: BP 104/74
[2019-05-13 15:01] VITALS: Ht 160 cm; Wt 89.1 kg
== END 2019-05-12 16:08 | disposition home or self-care (01) | DRG 190 ==
LOC: ED 00:24 → DU 01:54
PROVIDERS: Emergency Medicine; ADMIT Internal Medicine Pulmonary Disease
DX: I21.A1 Myocardial infarction type 2 (principal); I11.0 Hypertensive heart disease with heart failure; I50.30 Unspecified diastolic (congestive) heart failure; E83.42 Hypomagnesemia; I48.20 Chronic atrial fibrillation, unspecified; E03.9 Hypothyroidism, unspecified; I16.0 Hypertensive urgency; Z95.810 Presence of automatic (implantable) cardiac defibrillator
CPT/HCPCS: 83880; 84439; G0378; J1644; J1940

== ENCOUNTER 2019-11-13 20:25 | Inpatient (IN) | payer OTHER ==
[~2019-11-13] VITALS: Ht 160 cm; Wt 94.0 kg
[~2019-11-13 20:25] MED LIST changes: +CARVEDILOL12.5 M1 PO
[2019-11-13 20:30] VITALS: Ht 160 cm; Wt 94.0 kg
[2019-11-13 21:14] LABS: BASOPHIL % 1.3 % (0-2); PLATELET COUNT 209 x10^3mcL (130-400)
[2019-11-13 21:15] LABS: RED CELL DISTRIBUTION WIDTH 16.1 % (11.5-14.5)
[2019-11-13 22:30] LABS: CALCIUM 8.7 mg/dL (8.5-10.1); CHLORIDE SERUM 102 mmol/L (98-107); CREATININE SERUM 0.7 mg/dL (0.6-1.0); GFR1 > 60 mL/min; GLUCOSE SERUM 87 mg/dL (74-106); POTASSIUM SERUM 3.7 mmol/L (3.5-5.1); SODIUM SERUM 137 mmol/L (136-145)
[2019-11-13 22:39] LABS: ALBUMIN 3.4 g/dL (3.4-5.0); ALKALINE PHOSPHATASE 65 U/L (46-116); ALT/SGPT 78 U/L (14-59); AST/SGOT 54 U/L (15-37); BILIRUBIN TOTAL 0.69 mg/dL (0.20-1.00)
[2019-11-14 01:06] VITALS: BP 117/86
[2019-11-14 05:36] VITALS: BP 113/72; BP 115/72
[2019-11-14 08:40] VITALS: BP 156/78
[2019-11-14 12:38] VITALS: BP 102/68
[2019-11-14 16:45] VITALS: BP 109/73
== END 2019-11-14 17:10 | disposition home or self-care (01) | DRG 203 ==
LOC: ED 20:25 → DU 23:48 → MU 11-14 15:20
PROVIDERS: Emergency Medicine; ADMIT Internal Medicine Pulmonary Disease; ATTEND Internal Medicine Pulmonary Disease
DX: R07.89 Other chest pain (principal); I42.2 Other hypertrophic cardiomyopathy; I48.20 Chronic atrial fibrillation, unspecified; E03.9 Hypothyroidism, unspecified; I10 Essential (primary) hypertension; E66.9 Obesity, unspecified; Z79.01 Long term (current) use of anticoagulants; Z95.810 Presence of automatic (implantable) cardiac defibrillator; Z68.36 Body mass index [BMI] 36.0-36.9, adult; Z79.899 Other long term (current) drug therapy
CPT/HCPCS: G0378; J1650; J2270; J3010; Q0092